=== PATIENT | female | born 1995 | race African-American/Black ===

== ENCOUNTER 2018-10-26 19:56 | Emergency (ER) | payer SELFPAY ==
[~2018-10-26] VITALS: Ht 167.6 cm; Wt 73.5 kg
--- NOTE | 2018-10-26 20:32 | NUR ---
ED Nurse Note: Pt c/o been coughing and body aching 1.5 months, she went to her MD 2 weeks ago and got the antibiotic. She doesn't feel like meds was working for her, so she went to hospital this morning for the same. Pt is AO x 4times, VSS, on room air no distress. MIMI seen Pt at bedside.
[2018-10-26 20:33] VITALS: BP 113/67
[2018-10-26] MEDS ORDERED: PROMETH-CODEIN 65 ML PO (20:51)
[2018-10-26] MEDS ORDERED: PREDNISONE20 MG ORAL (20:51)
[2018-10-26 21:04] VITALS: BP 110/68
--- NOTE | 2018-10-26 21:05 | Emergency Room Report ---
History of Present Illness General Chief Complaint: Flu Like Symptoms Source: Patient Present Illness HPI Patient presents with complaints of generalized bodyaches Low-grade fevers Patient reports that she was seen by her primary physician in [place] about 2 weeks ago was given Z-Gaston She did somewhat better however has continued with her cough patient reports being at urgent care this morning reports having x-ray and flu test which were both negative Patient however feels that she is also having some flare of her rheumatoid arthritis Reports that she has not been getting her injections for over the past one year and this has also exacerbated discomfort Denies any neck pain or photophobia denies any vomiting or diarrhea she feels that the cough has been causing continued discomfort and is seeking some assistance with this Allergies: Coded Allergies: GUAIFENESIN (Verified Allergy, Unknown, 10/26/18) Patient History Past Medical History: see triage record Pertinent Family History: none Now: No Reviewed Nursing Documentation: PMH: Agreed; PSxH: Agreed Nursing Documentation-PMH Past Medical History: No Stated History Hx Neurological Problems: Yes - Rheumatoid Arthritis Review of Systems All Other Systems: negative except mentioned in HPI Physical Exam Vital Signs Date Time Temp Pulse Resp B/P (MAP) Pulse Ox O2 Delivery O2 Flow Rate FiO2 10/26/18 20:19 98.2 86 18 115/69 95 Room Air 10/26/18 20:33 99 Sp02 EP Interpretation: reviewed, normal General Appearance: well appearing, no apparent distress Head: normocephalic, atraumatic Eyes: bilateral eye PERRL, bilateral eye EOMI ENT: hearing grossly normal, normal pharynx, TMs + canals normal, uvula midline Neck: full range of motion, supple, no meningismus, no bony tend Respiratory: lungs clear, normal breath sounds, no rhonchi, no respiratory distress, no retraction, no accessory muscle use Cardiovascular #1: normal peripheral pulses, regular rate, rhythm, no edema, no gallop, no JVD, no murmur Gastrointestinal: normal bowel sounds, non tender, soft, no mass, no organomegaly, non-distended, no guarding, no hernia, no pulsatile mass, no rebound Genitourinary: no CVA tenderness Musculoskeletal: normal inspection Neurologic: oriented x3, responsive, representative personal service III-XII nml as tested, motor strength/ tone normal, sensory intact Psychiatric: mood/affect normal Skin: normal color, no rash, warm/dry, palpation normal Lymphatic: normal inspection, no adenopathy Medical Decision Making Diagnostic Impression: Primary Impression: flu like symptoms ER Course Patient has a fairly benign medical evaluation Does not appear septic or toxic consideration for meningitis is low, viral pathology along with possible exacerbation of underlying autoimmune disease considered highly patient will have prescription for further cough medication low-dose steroid for the inflammatory process as well and will have initial conservative outpatient trial, Last Vital Signs Date Time Temp Pulse Resp B/P (MAP) Pulse Ox O2 Delivery O2 Flow Rate FiO2 10/26/18 20:33 98.2 73 18 113/67 95 Room Air 10/26/18 20:33 99 Status: unchanged Disposition: HOME, SELF-CARE Condition: Stable Scripts Prednisone* (PREDNISONE*) 20 Mg Tablet 20 MG ORAL BID, #8 TAB Prov: Faviola Downing DO 10/26/18 Promethazine HCl/Codeine (Prometh-Codein 6.25-10 mg/5 ml) 5 Ml Syrup 5 ML PO QHS, #7 ML Prov: Faviola Downing DO 10/26/18 Patient Instructions: Influenza, Adult, [id number], Cough, Adult, Easy-to- Read Additional Instructions: Patient is provided with the discharge instructions notified to follow up with primary doctor in the next 2-3 days otherwise return to the er with any worsening symptoms. Please note that this report is being documented using [employer] technology. This can lead to erroneous entry secondary to incorrect interpretation by the dictating instrument. Faviola Downing DO Oct 26, 2018 21:05
--- NOTE | 2018-10-26 21:05 | NUR ---
ED Nurse Note: Pt cleared by Health Care Provider for discharge. DC instructions/prescriptions given and explained to pt and verbalized understanding of teachings. All medical devices such as ID band removed. Pt AAO x4, ambulatory and left with all personal belongings. pt is instructed to follow up with primary MD as soon as possible. pt is insturcted to return and seek medical attention if reoccurance of symptoms. pt has left with all DC notes and has been able to teach back all instructions.
== END 2018-10-26 21:10 | disposition home or self-care (01) ==
LOC: EMR 20:05
DX: M79.10 Myalgia, unspecified site (principal); R50.9 Fever, unspecified; M06.9 Rheumatoid arthritis, unspecified; R05 Cough; Z88.8 Allergy status to other drugs, medicaments and biological substances
CPT/HCPCS: 99282